=== PATIENT | male | born 1985 | race Caucasian/White ===

== ENCOUNTER 2020-09-10 17:48 | Inpatient (IN) | payer BC ==
[2020-09-10] MEDS ORDERED: SODIUM CHLORIDE 0.9% 1,000 ML IV ONE (19:05)
--- NOTE | 2020-09-10 19:37 | ED ---
General Adult HPI - General Chief complaint: Shortness of Breath Stated complaint: covid+/low o2/sob Time Seen by Provider: 09/10/20 18:50 Source: patient Mode of arrival: ambulatory Limitations: no limitations - History of Present Illness Initial comments: 34 year-old male patient presents to the emergency department for evaluation of increased shortness of breath and low oxygen saturation after being diagnosed with COVID. States he started having symptoms on 09/03/20, tested positive at urgent care on 09/05/20. They prescribed him antibiotics, steroids, and an inhaler. States that meds are not really helping. States that his O2 saturation was 86% at home. States he has an intermittent dry cough. No sputum production, no wheezing. Denies vomiting or diarrhea. Denies any significant medical history. Does not take daily medication. Patient denies any recent rash, chest pain, abdominal pain, back pain, numbness, tingling, dizziness, weakness, grazyna turia, dysuria, urinary urgency, urinary frequency, headache, visual changes, or any other complaints. - Related Data Home Medications Medication Instructions Recorded Confirmed Albuterol Inhaler [Ventolin Hfa 1 - 2 puff INHALATION RT-Q6H PRN 09/10/20 09/10/20 Inhaler] Aspirin EC [Ecotrin Low Dose] 81 mg PO DAILY 09/10/20 09/10/20 Azithromycin [Zithromax] See Taper PO DAILY 09/10/20 09/10/20 Dexamethasone [Decadron] 6 mg PO DAILY 09/10/20 09/10/20 Allergies Allergy/AdvReac Type Severity Reaction Status Date / Time No Known Allergies Allergy Verified 09/10/20 20:34 Review of Systems ROS Statement: Those systems with pertinent positive or pertinent negative responses have been documented in the HPI. ROS Other: All systems not noted in ROS Statement are negative. Past Medical History Past Medical History: No Reported History History of Any Multi-Drug Resistant Organisms: None Reported Past Surgical History: No Surgical Hx Reported Past Psychological History: No Psychological Hx Reported Smoking Status: Former smoker Past Alcohol Use History: Occasional Past Drug Use History: None Reported General Exam Limitations: no limitations General appearance: alert, in no apparent distress Eye exam: Present: normal appearance, PERRL, EOMI. Absent: scleral icterus, conjunctival injection, periorbital swelling ENT exam: Present: normal exam, normal oropharynx, mucous membranes moist Respiratory exam: Present: normal lung sounds bilaterally. Absent: respiratory distress, wheezes, rales, rhonchi, stridor Cardiovascular Exam: Present: regular rate, normal rhythm, normal heart sounds. Absent: systolic murmur, diastolic murmur, rubs, gallop, clicks GI/Abdominal exam: Present: soft, normal bowel sounds. Absent: distended, tenderness, guarding, rebound, rigid Neurological exam: Present: alert, oriented X3, CN II-XII intact Psychiatric exam: Present: normal affect, normal mood Skin exam: Present: warm, dry, intact, normal color. Absent: rash Course Vital Signs 09/10/20 09/10/20 18:02 21:26 Temperature 99.2 F Pulse Rate 88 Respiratory 20 Rate Blood Pressure 134/78 O2 Sat by Pulse 93 L 86 L Oximetry EKG Findings - EKG Comments: EKG Findings:: EKG obtained at 1902 shows normal sinus rhythm with a ventricular rate of 85, MO interval 146, QRS duration 88, QT 372, QTc 442. No evidence of ST elevation or depression. Medical Decision Making - Medical Decision Making 34-year-old male patient presents to the emergency department today for evaluation of increased shortness of breath and low oxygen saturation. Diagnosed with Covid on 09/05/2020, started having symptoms on 09/03/2020. Was given prescriptions for dexamethasone, azithromycin, and Pro Air. Physical examination reveals clear equal lung sounds. He had appeared to be in any significant respiratory distress. Labs reviewed and did reveal lymphocytes, d- dimer 0.49. Glucose 170. LDH is 967, CRP is 7.2. Ambulatory pulse ox is 86% on room air. Resting pulse ox on room air is 89%. He'll be admitted to the hospital for oxygen therapy. We'll add vitamins, IV dexamethasone, and Lovenox. Did consult pulmonology. Case was discussed with Raymond Diaz from [facility]. Case discussed with my attending Dr. Pruitt. - Lab Data Result diagrams: 09/10/20 19:36 09/10/20 19:36 Lab Results 09/10/20 09/10/20 09/10/20 Range/Units 19:36 19:36 19:36 WBC 3.5 L (3.8-10.6) k/uL RBC 4.98 (4.30-5.90) m/uL Hgb 14.0 (13.0-17.5) gm/dL Hct 43.9 (39.0-53.0) % MCV 88.2 (80.0-100.0) fL MCH 28.1 (25.0-35.0) pg MCHC 31.9 (31.0-37.0) g/dL RDW 14.0 (11.5-15.5) % Plt Count 143 L (150-450) k/uL MPV 8.9 Neutrophils % 79 % Lymphocytes % 15 % Monocytes % 4 % Eosinophils % 0 % Basophils % 0 % Neutrophils # 2.7 (1.3-7.7) k/uL Lymphocytes # 0.5 L (1.0-4.8) k/uL Monocytes # 0.1 (0-1.0) k/uL Eosinophils # 0.0 (0-0.7) k/uL Basophils # 0.0 (0-0.2) k/uL PT 10.4 (9.0-12.0) sec INR 1.0 (<1.2) APTT 28.1 (22.0-30.0) sec D-Dimer 0.49 (<0.60) mg/L FEU Sodium 136 L (137-145) mmol/L Potassium 5.0 (3.5-5.1) mmol/L Chloride 98 (98-107) mmol/L Carbon Dioxide 29 (22-30) mmol/L Anion Gap 9 mmol/L BUN 20 (9-20) mg/dL Creatinine 0.84 (0.66-1.25) mg/dL Est GFR (CKD-EPI)AfAm >90 (>60 ml/min/1.73 sqM) Est GFR (CKD-EPI)NonAf >90 (>60 ml/min/1.73 sqM) Glucose 170 H (74-99) mg/dL Plasma Lactic Acid Kareem (0.7-2.0) mmol/L Calcium 8.7 (8.4-10.2) mg/dL Magnesium 2.4 H (1.6-2.3) mg/dL Total Bilirubin 0.6 (0.2-1.3) mg/dL AST 56 (17-59) U/L ALT 38 (4-49) U/L Alkaline Phosphatase 40 (38-126) U/L Lactate Dehydrogenase 967 H (313-618) U/L C-Reactive Protein 7.2 H (<1.0) mg/dL Total Protein 6.7 (6.3-8.2) g/dL Albumin 4.2 (3.5-5.0) g/dL 09/10/20 Range/Units 19:36 WBC (3.8-10.6) k/uL RBC (4.30-5.90) m/uL Hgb (13.0-17.5) gm/dL Hct (39.0-53.0) % MCV (80.0-100.0) fL MCH (25.0-35.0) pg MCHC (31.0-37.0) g/dL RDW (11.5-15.5) % Plt Count (150-450) k/uL MPV Neutrophils % % Lymphocytes % % Monocytes % % Eosinophils % % Basophils % % Neutrophils # (1.3-7.7) k/uL Lymphocytes # (1.0-4.8) k/uL Monocytes # (0-1.0) k/uL Eosinophils # (0-0.7) k/uL Basophils # (0-0.2) k/uL PT (9.0-12.0) sec INR (<1.2) APTT (22.0-30.0) sec D-Dimer (<0.60) mg/L FEU Sodium (137-145) mmol/L Potassium (3.5-5.1) mmol/L Chloride (98-107) mmol/L Carbon Dioxide (22-30) mmol/L Anion Gap mmol/L BUN (9-20) mg/dL Creatinine (0.66-1.25) mg/dL Est GFR (CKD-EPI)AfAm (>60 ml/min/1.73 sqM) Est GFR (CKD-EPI)NonAf (>60 ml/min/1.73 sqM) Glucose (74-99) mg/dL Plasma Lactic Acid Kareem 1.0 (0.7-2.0) mmol/L Calcium (8.4-10.2) mg/dL Magnesium (1.6-2.3) mg/dL Total Bilirubin (0.2-1.3) mg/dL AST (17-59) U/L ALT (4-49) U/L Alkaline Phosphatase (38-126) U/L Lactate Dehydrogenase (313-618) U/L C-Reactive Protein (<1.0) mg/dL Total Protein (6.3-8.2) g/dL Albumin (3.5-5.0) g/dL - Radiology Data Radiology results: report reviewed, image reviewed Two-view x-ray of the chest is obtained. Report was reviewed in its entirety. Impression by Dr. Caldwell shows patchy pneumonia left side. Normal heart. Disposition Clinical Impression: COVID-19, Hypoxia Disposition: ADMITTED IP TO THIS [facility] Condition: Serious Referrals: Khadar Lynne DO [Primary Care Provider] - 1-2 days Decision to Admit Reason: Admit from EC Decision Date: 09/10/20 Decision Time: 22:06
--- NOTE | 2020-09-10 19:47 | XR ---
EXAMINATION TYPE: XR chest 1V portable DATE OF EXAM: 09/10/2020 COMPARISON: NONE HISTORY: Hypoxemia TECHNIQUE: Single view FINDINGS: There is some patchy airspace infiltrate in the left lung. The right lung is clear. Heart a nd mediastinum are normal. There are no hilar masses. There is no pleural effusion. IMPRESSION: There is some patchy pneumonia on the left side. Normal heart.
[2020-09-10] MEDS ORDERED: DEXAMETHASONE SOD PHOSPHATE 10 MG/ML 1 ML VIAL IV STA (19:58)
[2020-09-10 20:11] LABS: Basophils % (A) 0 %; Eosinophils % (A) 0 %; HCT 43.9 % (39.0-53.0); Lymphocytes # (A) 0.5 k/uL (1.0-4.8); Lymphocytes % (A) 15 %; MCH 28.1 pg (25.0-35.0); MCHC 31.9 g/dL (31.0-37.0); MCV 88.2 fL (80.0-100.0); Mean Platelet Volume 8.9; Monocytes # (A) 0.1 k/uL (0-1.0); Monocytes % (A) 4 %; Neutrophils # (A) 2.7 k/uL (1.3-7.7); Neutrophils % (A) 79 %; Platelet Count 143 k/uL (150-450); RBC 4.98 m/uL (4.30-5.90); WBC 3.5 k/uL (3.8-10.6)
[2020-09-10 20:29] LABS: ALT 38 U/L (4-49); AST 56 U/L (17-59); African American GFR (CKD) >90 (>60 ml/min/1.73 sqM); Albumin 4.2 g/dL (3.5-5.0); Alkaline Phosphatase 40 U/L (38-126); Anion Gap 9 mmol/L; Blood Urea Nitrogen 20 mg/dL (9-20); C Reactive Protein 7.2 mg/dL (<1.0); Calcium 8.7 mg/dL (8.4-10.2); Carbon Dioxide 29 mmol/L (22-30); Chloride 98 mmol/L (98-107); D-Dimer 0.49 mg/L FEU (<0.60); Glucose 170 mg/dL (74-99); LDH 967 U/L (313-618); Magnesium 2.4 mg/dL (1.6-2.3); Non-African American GFR(CKD) >90 (>60 ml/min/1.73 sqM); Partial Thromboplastin Time 28.1 sec (22.0-30.0); Prothrombin Time 10.4 sec (9.0-12.0); Sodium 136 mmol/L (137-145); Total Bilirubin 0.6 mg/dL (0.2-1.3); Total Protein 6.7 g/dL (6.3-8.2)
[2020-09-10] MEDS ORDERED: NALOXONE 0.4 MG/ML 1 ML VIAL IV PRN (21:32)
[2020-09-10] MEDS ORDERED: ACETAMINOPHEN TAB 325 MG TAB PO PRN (21:32)
[2020-09-10] MEDS ORDERED: ENOXAPARIN 40 MG/0.4 ML SYRINGE SQ STA (22:00)
[2020-09-10] MEDS ORDERED: REMDESIVIR 200 MG in SODIUM CHLORIDE 0.9% 250 ML IVPB ONE (23:00)
[2020-09-11] MEDS: ASCORBIC ACID 500 MG TAB PO SCH (08:55)
[2020-09-11] MEDS: DEXAMETHASONE SOD PHOSPHATE 10 MG/ML 1 ML VIAL IV SCH (08:55)
[2020-09-11] MEDS: ENOXAPARIN 40 MG/0.4 ML SYRINGE SQ SCH (08:55)
[2020-09-11] MEDS: ZINC SULFATE 220 MG CAP PO SCH (08:55)
[2020-09-11] MEDS: CHOLECALCIFEROL 25 MCG (1000 IU) TABLET PO SCH (08:55)
[2020-09-11 12:52] LABS: Ferritin 661.3 ng/mL (22.0-322.0)
--- NOTE | 2020-09-11 12:57 | P.CNPUL ---
History of Present Illness Consult date: 09/11/20 Requesting physician: Kashif Sanchez Reason for consult: dyspnea, abnormal CXR/CT Chief complaint: Shortness of breath, cough, congestion History of present illness: This is a pleasant 34-year-old male patient who follows with Dr. Lynne as his primary care provider. Significant medical history. Former smoker. On 09/03/2020 he developed symptoms of increased shortness of breath, cough, con gestion, fever with aches. He was diagnosed with COVID-19 on 09/05/2020 at [facility]. He was initiated on antibiotics, steroids, albuterol. No significant improvement. His O2 saturations were 86% at home and presented here to the emergency room yesterday. Chest x-ray revealed bilateral patchy infiltrates more so on the left lung. Initial O2 saturation 86% on room air. 94% on 2 L now. T-max of 102.3. Currently afebrile. White count 3.5. Hemoglobin 14.0. Lymphocytes 0.5. D-dimer 0.49. Sodium 136. Potassium 5.0. Creatinine 0.84. LDH 967. C-reactive protein 7.2. Pro-calcitonin 0.08. He is seen today in consultation in the emergency room. He is currently sitting up on the s tretcher. Awake and alert in no acute distress. Breathing a bit easier today compared to yesterday. He was initiated on Remdesivir last evening. This is day #2. He is on Lovenox, dexamethasone 6 mg daily, vitamin supplements. Review of Systems REVIEW OF SYSTEMS: CONSTITUTIONAL: Generalized weakness, fevers. Denies any recent significant weight loss or weight gain. EYES: Denies change in vision. EARS, NOSE, MOUTH, THROAT: Denies headaches, denies sore throat. CARDIOVASCULAR: Denies chest pain, palpitations or syncopal episodes. RESPIRATORY: Positive for shortness of breath, cough, congestion no hemoptysis. GASTROINTESTINAL: Denies change in appetite, denies abdominal pain GENITOURINARY: Denies hematuria, denies infections. MUSKULOSKELETAL: Denies pain, denies swelling. INTEGUMENTARY: Denies rash, denies eczema. NEUROLOGICAL: Denies recent memory loss, no recent seizure activity. PSYCHIATRIC: Denies anxiety, denies depression. HEMATOLOGIC/LYMPHATIC: Denies anemia, denies enlarged lymph nodes. Past Medical History Past Medical History: No Reported History History of Any Multi-Drug Resistant Organisms: None Reported Past Surgical History: No Surgical Hx Reported Past Psychological History: No Psychological Hx Reported Smoking Status: Former smoker Past Alcohol Use History: Occasional Past Drug Use History: None Reported Medications and Allergies Home Medications Medication Instructions Recorded Confirmed Type Albuterol Inhaler [Ventolin Hfa 1 - 2 puff INHALATION RT-Q6H PRN 09/10/20 09/10/20 History Inhaler] Aspirin EC [Ecotrin Low Dose] 81 mg PO DAILY 09/10/20 09/10/20 History Azithromycin [Zithromax] See Taper PO DAILY 09/10/20 09/10/20 History Dexamethasone [Decadron] 6 mg PO DAILY 09/10/20 09/10/20 History Allergies Allergy/AdvReac Type Severity Reaction Status Date / Time No Known Allergies Allergy Verified 09/10/20 20:34 Physical Exam Vitals: Vital Signs Temp Pulse Resp BP Pulse Ox 09/11/20 07:46 78 16 133/79 94 L 09/11/20 05:00 97.0 F L 69 22 139/84 95 09/11/20 01:02 98.0 F 77 16 95 09/10/20 22:37 102.3 F H 90 18 131/78 93 L 09/10/20 21:26 86 L 09/10/20 18:02 99.2 F 88 20 134/78 93 L Intake and Output 09/10/20 09/11/20 09/11/20 22:59 06:59 14:59 Other: Weight 95.254 kg GENERAL EXAM: Alert, very pleasant 34-year-old gentleman, on 2 L nasal cannula, fairly comfortable in no apparent distress. HEAD: Normocephalic. EYES: Normal reaction of pupils, equal size. NOSE: Clear with pink turbinates. THROAT: No erythema or exudates. NECK: No masses, no JVD. CHEST: No chest wall deformity. LUNGS: Equal air entry with eczema bilateral bases left greater than right. CVS: S1 and S2 normal with no audible murmur, regular rhythm. ABDOMEN: No hepatosplenomegaly, normal bowel sounds, no guarding or rigidity. SPINE: No scoliosis or deformity SKIN: No rashes CENTRAL NERVOUS SYSTEM: No focal deficits, tone is normal in all 4 extremities. EXTREMITIES: There is no peripheral edema. No clubbing, no cyanosis. Peripheral pulses are intact. Results - Laboratory Findings CBC and BMP: 09/10/20 19:36 09/10/20 19:36 PT/INR, D-dimer PT 10.4 sec (9.0-12.0) 09/10/20 19:36 INR 1.0 (<1.2) 09/10/20 19:36 D-Dimer 0.49 mg/L FEU (<0.60) 09/10/20 19:36 Abnormal lab findings: Abnormal Labs 09/10/20 05 19:36 19:36 WBC 3.5 L Plt Count 143 L Lymphocytes # 0.5 L Sodium 136 L Glucose 170 H Magnesium 2.4 H Lactate Dehydrogenase 967 H C-Reactive Protein 7.2 H - Diagnostic Findings Chest x-ray: image reviewed Assessment and Plan Assessment: 1 Acute hypoxemic respiratory failure secondary to acute COVID-19 pneumonia. Initiated on Remdesivir 09/10/2020 2 Febrile illness secondary to above 3 Elevated inflammatory markers secondary to above 4. Former smoker Plan: The patient was seen and evaluated by Dr. Robles Chest x-ray and labs reviewed Initiated on Remdesivir, day #2 Continue Lovenox, Decadron, vitamin supplements Titrate the FiO2 as tolerated We will continue to follow and make further recommendations based on his clinical status I, the cosigning physician, performed a history & physical examination of the patient. Lungs sounds crackles in the posterior bases left greater than right. Maintaining good O2 saturations in the 90s on 2 L/m per nasal cannula. I discussed the assessment and plan of care with my nurse practitioner, Radha Dunn. I attest to the above consultation as dictated by her. Time with Patient: Greater than 30
[2020-09-11] MEDS: REMDESIVIR 100 MG in SODIUM CHLORIDE 0.9% 250 ML IVPB SCH (22:30)
--- NOTE | 2020-09-11 23:30 | P.HPIM ---
History of Present Illness H&P Date: 09/11/20 Chief Complaint: SOB Patient is a 34-year-old male without significant past medical history except prior history of smoking presents to ER due to worsening shortness of breath. Patient also having fever body aches and cough and congestion. Started having symptoms on 09/03/2020 and was tested positive at urgent care facility on 09/05/2020. Patient was started albuterol inhaler, dexamethasone and azithromycin. Patient has been on taking the medication but his symptoms are progressing. Patient states his pulse ox at home found to be 86%. Denies any nausea vomiting or diarrhea. No abdominal pain. No dizziness or lightheadedness. Present presents to ER due to worsening symptoms. Chest x-ray showed there is some parenchymal pneumonia on the left side. Normal heart. EKG showed normal sinus rhythm Laboratory data showed WBC 3.5 hemoglobin 14.0 platelets 143 lymphocytes 0.5 D-dimer is 0.49 Sodium 136, potassium 5.0 BUN 20 and creatinine 0.84, magnesium 2.4 ferritin 661.3 LDH 967 CRP 7.2 and procalcitonin level is 0.08. T-max 102.3 Review of Systems Constitutional: Patient does have fever, chills, generalized weakness and malaise., Body aches.. Abdomen: Patient denied nausea vomiting and diarrhea and abdominal pain. Cardiovascular: Patient denies any chest pain or short of breath no palpitations. Respiratory:Patient does have cough without sputum production. Positive shortness of breath. Neurologic: Patient denied any numbness or tingling headache. Musculoskeletal: Patient denies any complaints of joint swelling or deformity. Skin: Negative Psychiatric: Negative Endocrine: No heat or cold intolerance. No recent weight gain. Genitourinary: No dysuria or hematuria. All other 14 point ROS negative except the above Past Medical History Past Medical History: No Reported History History of Any Multi-Drug Resistant Organisms: None Reported Past Surgical History: No Surgical Hx Reported Past Psychological History: No Psychological Hx Reported Smoking Status: Former smoker Past Alcohol Use History: Occasional Past Drug Use History: None Reported - Past Family History Father Family Medical History: Cancer, Hypertension Additional Family Medical History / Comment(s): leukemia Medications and Allergies Home Medications Medication Instructions Recorded Confirmed Type Albuterol Inhaler [Ventolin Hfa 1 - 2 puff INHALATION RT-Q6H PRN 09/10/20 09/10/20 History Inhaler] Azithromycin [Zithromax] See Taper PO DAILY 09/10/20 09/10/20 History Dexamethasone [Decadron] 6 mg PO DAILY 09/10/20 09/10/20 History Allergies Allergy/AdvReac Type Severity Reaction Status Date / Time No Known Allergies Allergy Verified 09/10/20 20:34 Physical Exam Vitals: Vital Signs Temp Pulse Resp BP Pulse Ox 09/11/20 07:46 78 16 133/79 94 L 09/11/20 05:00 97.0 F L 69 22 139/84 95 09/11/20 01:02 98.0 F 77 16 95 09/10/20 22:37 102.3 F H 90 18 131/78 93 L 09/10/20 21:26 86 L 09/10/20 18:02 99.2 F 88 20 134/78 93 L Intake and Output 09/10/20 09/11/20 09/11/20 22:59 06:59 14:59 Other: Weight 95.254 kg PHYSICAL EXAMINATION: Patient is lying in the bed comfortably, no acute distress, awake alert and oriented.. HEENT: Normocephalic. Neck is supple. Pupils reactive. Nostrils clear. Oral cavity is moist. Ears reveal no drainage. Neck reveals no JVD, carotid bruits, or thyromegaly. CHEST EXAMINATION: Trachea is central. Symmetrical expansion. Lung carroll clear to auscultation and percussion. CARDIAC: Normal S1, S2 with no gallops. No murmurs ABDOMEN: Soft. Bowel sounds normal. No organomegaly. No abdominal bruits. Extremities: reveal no edema. No clubbing or cyanosis Neurologically awake, alert, oriented x3 with well-coordinated movements. No focal deficits noted Skin: No rash or skin lesions. Psychiatric: Coperative. Nonsuicidal Musculoskeletal: No joint swelling or deformity. Normal range of motion. Results CBC & Chem 7: 09/10/20 19:36 09/10/20 19:36 Labs: Abnormal Lab Results - Last 24 Hours (Table) 09/10/20 09/10/20 Range/Units 19:36 19:36 WBC 3.5 L (3.8-10.6) k/uL Plt Count 143 L (150-450) k/uL Lymphocytes # 0.5 L (1.0-4.8) k/uL Sodium 136 L (137-145) mmol/L Glucose 170 H (74-99) mg/dL Magnesium 2.4 H (1.6-2.3) mg/dL Lactate Dehydrogenase 967 H (313-618) U/L C-Reactive Protein 7.2 H (<1.0) mg/dL Thrombosis Risk Factor Assmnt - DVT/VTE Prophylaxis DVT/VTE Prophylaxis: Pharmacologic Prophylaxis ordered Assessment and Plan Assessment: Acute COVID-19 pneumonia. Acute hypoxic respiratory failure secondary to above Generalized body aches, fever cough and congestion Elevated inflammatory markers secondary to COVID-19 Previous history of smoking DVT prophylaxis with Lovenox subcu Plan: Patient will be continued on dexamethasone and Lovenox subcu 40 mg daily along with multivitamins and oxygen supplementation. Patient is currently on oxygen at 2 L via nasal cannula and is saturating at 93%. Pulmonary was consulted for possible remdesivir therapy. Continue to follow closely. Continue with droplet and contact precautions. Time with Patient: Greater than 30
--- NOTE | 2020-09-12 06:47 | XR ---
EXAMINATION TYPE: XR chest 1V portable DATE OF EXAM: 09/12/2020 COMPARISON: 09/10/2020 HISTORY: Pneumonia TECHNIQUE: Single frontal view of the chest is obtained. FINDINGS: Patchy opacity seen along the left heart border could represent pneumonia. There is less v isible today and may represent slight improvement. Remainder of the lungs are clear. Is no pleural ef fusion or pneumothorax. Heart and mediastinum are midline and within normal limits. IMPRESSION: Slight improvement.
[2020-09-12] MEDS: ZINC SULFATE 220 MG CAP PO SCH (08:11)
[2020-09-12] MEDS: CHOLECALCIFEROL 25 MCG (1000 IU) TABLET PO SCH (08:11)
[2020-09-12] MEDS: DEXAMETHASONE SOD PHOSPHATE 10 MG/ML 1 ML VIAL IV SCH (08:11)
[2020-09-12] MEDS: ENOXAPARIN 40 MG/0.4 ML SYRINGE SQ SCH (08:11)
[2020-09-12] MEDS: ASCORBIC ACID 500 MG TAB PO SCH (08:11)
--- NOTE | 2020-09-12 12:39 | P.PN ---
Subjective Progress Note Date: 09/12/20 Principal diagnosis: COVID-19 pneumonia This is a pleasant 34-year-old male patient who follows with Dr. Lynne as his primary care provider. Significant medical history. Former smoker. On 09/03/2020 he developed symptoms of increased shortness of breath, cough, congestion, fever with aches. He was diagnosed with COVID-19 on 09/05/2020 at [facility]. He was initiated on antibiotics, steroids, albuterol. No significant improvement. His O2 saturations were 86% at home and presented here to the emergency room yesterday. Chest x-ray revealed bilateral patchy infilt rates more so on the left lung. Initial O2 saturation 86% on room air. 94% on 2 L now. T-max of 102.3. Currently afebrile. White count 3.5. Hemoglobin 14.0. Lymphocytes 0.5. D-dimer 0.49. Sodium 136. Potassium 5.0. Creatinine 0.84. LDH 967. C-reactive protein 7.2. Pro-calcitonin 0.08. He is seen today in consultation in the emergency room. He is currently sitting up on the stretcher. Awake and alert in no acute distress. Breathing a bit easier today compared to yesterday. He was initiated on Remdesivir last evening. This is day #2. He is on Lovenox, dexamethasone 6 mg daily, vitamin supplements. The patient is seen today 09/12/2020 in follow-up on the regular medical floor. He is currently sitting up in bed. Awake and alert in no acute distress. No worsening shortness of breath, cough or congestion. He is maintaining O2 saturation in the low 90s on 2 L/m per nasal cannula. Temperature 99.8. Blood pressure stable. Chest x-ray continues to show bilateral patchy infiltrates with slight improvement compared to previous. D-dimer 0.31. Day #3 of Remdesivir. Remains on dexamethasone, Lovenox, vitamin supplements. Objective - Vital Signs Vital signs: Vital Signs Temp 99.8 F H 09/12/20 10:19 Pulse 85 09/12/20 10:19 Resp 17 09/12/20 10:19 BP 137/72 09/12/20 10:19 Pulse Ox 90 L 09/12/20 10:19 Intake & Output 09/11/20 09/12/20 09/12/20 18:59 06:59 18:59 Intake Total 250 Balance 250 Weight 95.254 kg Intake: Intake, IV Titration 250 Amount Remdesivir 200 mg In 250 Sodium Chloride 0.9% 250 ml @ 250 mls/hr IVPB ONCE ONE Rx#:[id number] Other: Voiding Method Toilet # Voids 3 - Exam GENERAL EXAM: Alert, very pleasant 34-year-old gentleman, on 2 L nasal cannula, fairly comfortable in no apparent distress. HEAD: Normocephalic. EYES: Normal reaction of pupils, equal size. NOSE: Clear with pink turbinates. THROAT: No erythema or exudates. NECK: No masses, no JVD. CHEST: No chest wall deformity. LUNGS: Equal air entry with crackles in the bilateral bases left greater than right. CVS: S1 and S2 normal with no audible murmur, regular rhythm. ABDOMEN: No hepatosplenomegaly, normal bowel sounds, no guarding or rigidity. SPINE: No scoliosis or deformity SKIN: No rashes CENTRAL NERVOUS SYSTEM: No focal deficits, tone is normal in all 4 extremities. EXTREMITIES: There is no peripheral edema. No clubbing, no cyanosis. Peripheral pulses are intact. - Labs CBC & Chem 7: 09/10/20 19:36 09/10/20 19:36 Labs: Abnormal Lab Results - Last 24 Hours (Table) 09/10/20 Range/Units 19:36 Ferritin 661.3 H (22.0-322.0) ng/mL Assessment and Plan Assessment: 1 Acute hypoxemic respiratory failure secondary to acute COVID-19 pneumonia. Initiated on Remdesivir 09/10/2020 2 Febrile illness secondary to above 3 Elevated inflammatory markers secondary to above 4 Former smoker Plan: The patient was seen and evaluated by Dr. Robles Chest x-ray and labs reviewed Remdesivir, day #3 Continue Lovenox, Decadron, vitamin supplements Titrate the FiO2 as tolerated Follow-up labs in a.m. We will continue to follow I, the cosigning physician, performed a history & physical examination of the patient. Lungs sounds crackles in the posterior bases left greater than right. Maintaining good O2 saturations in the 90s on 2 L/m per nasal cannula. I discussed the assessment and plan of care with my nurse practitioner, Radha Dunn. I attest to the above note as dictated by her.
[2020-09-12 15:22] LABS: C Reactive Protein 2.4 mg/dL (0.0-0.8)
[2020-09-12] MEDS: MELATONIN 3 MG TABLET PO SCH (21:19)
[2020-09-12] MEDS: REMDESIVIR 100 MG in SODIUM CHLORIDE 0.9% 250 ML IVPB SCH (22:56)
--- NOTE | 2020-09-13 00:22 | P.PN ---
Subjective Progress Note Date: 09/12/20 Principal diagnosis: Acute COVID-19 pneumonia. Acute hypoxic respiratory failure secondary to above Patient is a 34-year-old male without significant past medical history except p rior history of smoking presents to ER due to worsening shortness of breath. Patient also having fever body aches and cough and congestion. Started having symptoms on 09/03/2020 and was tested positive at urgent care facility on 09/05/2020. Patient was started albuterol inhaler, dexamethasone and ben thromycin. Patient has been on taking the medication but his symptoms are progressing. Patient states his pulse ox at home found to be 86%. Denies any nausea vomiting or diarrhea. No abdominal pain. No dizziness or lightheadedness. Present presents to ER due to worsening symptoms. Chest x-ray showed there is some parenchymal pneumonia on the left side. Normal heart. EKG showed normal sinus rhythm Laboratory data showed WBC 3.5 hemoglobin 14.0 platelets 143 lymphocytes 0.5 D-dimer is 0.49 Sodium 136, potassium 5.0 BUN 20 and creatinine 0.84, magnesium 2.4 ferritin 661.3 LDH 967 CRP 7.2 and procalcitonin level is 0.08. T-max 102.3 09/12/2020 Patient is currently lying in the bed comfortably. Patient states that he feels better today. Denies any complaints of chest pain. Currently on oxygen at 2 L via nasal cannula and saturating at 90%. T-max 99.8 this morning. Chest x-ray showed slight improvement. Otherwise patient is being continued on remdesivir day 3 and dexamethasone and Lovenox. Pulmonary is on board. Current medications reviewed. Objective - Vital Signs Vital signs: Vital Signs Temp 99.8 F H 09/12/20 10:19 Pulse 85 09/12/20 10:19 Resp 17 09/12/20 10:19 BP 137/72 09/12/20 10:19 Pulse Ox 90 L 09/12/20 10:19 Intake & Output 09/11/20 09/12/20 09/12/20 18:59 06:59 18:59 Intake Total 250 Balance 250 Weight 95.254 kg Intake: Intake, IV Titration 250 Amount Remdesivir 200 mg In 250 Sodium Chloride 0.9% 250 ml @ 250 mls/hr IVPB ONCE ONE Rx#:[id number] Other: Voiding Method Toilet # Voids 3 - Exam PHYSICAL EXAMINATION: Patient is lying in the bed comfortably, no acute distress, awake alert and oriented.. HEENT: Normocephalic. Neck is supple. Pupils reactive. Nostrils clear. Oral cavity is moist. Ears reveal no drainage. Neck reveals no JVD, carotid bruits, or thyromegaly. CHEST EXAMINATION: Trachea is central. Symmetrical expansion. Lung carroll clear to auscultation and percussion. CARDIAC: Normal S1, S2 with no gallops. No murmurs ABDOMEN: Soft. Bowel sounds normal. No organomegaly. No abdominal bruits. Extremities: reveal no edema. No clubbing or cyanosis Neurologically awake, alert, oriented x3 with well-coordinated movements. No fo angela deficits noted Skin: No rash or skin lesions. Psychiatric: Coperative. Nonsuicidal Musculoskeletal: No joint swelling or deformity. Normal range of motion. - Labs CBC & Chem 7: 09/10/20 19:36 09/10/20 19:36 Assessment and Plan Assessment: Acute COVID-19 pneumonia. Acute hypoxic respiratory failure secondary to above Generalized body aches, fever cough and congestion Elevated inflammatory markers secondary to COVID-19 Previous history of smoking DVT prophylaxis with Lovenox subcu Plan: Patient will be continued on dexamethasone and Lovenox subcu 40 mg daily along with multivitamins and oxygen supplementation. Patient is currently on oxygen at 2 L via nasal cannula and is saturating at 93%. pulmonary is following. remdesivir therapy day 3. Continue to follow closely. Continue with droplet and contact precautions. Time with Patient: Greater than 30
[2020-09-13] MEDS: ASCORBIC ACID 500 MG TAB PO SCH (08:38)
[2020-09-13] MEDS: DEXAMETHASONE SOD PHOSPHATE 10 MG/ML 1 ML VIAL IV SCH (08:38)
[2020-09-13] MEDS: CHOLECALCIFEROL 25 MCG (1000 IU) TABLET PO SCH (08:38)
[2020-09-13] MEDS: ZINC SULFATE 220 MG CAP PO SCH (08:38)
[2020-09-13] MEDS: ENOXAPARIN 40 MG/0.4 ML SYRINGE SQ SCH (08:39)
[2020-09-13 11:46] LABS: Basophils # (A) 0.01 X 10*3/uL (0.00-0.10); Basophils % (A) 0.1 %; Eosinophils # (A) 0 X 10*3/uL (0.04-0.35); Eosinophils % (A) 0 %; HCT 45.1 % (39.6-50.0); HGB 13.9 g/dL (13.0-17.0); Lymphocytes # (A) 1.87 X 10*3/uL (0.90-5.00); Lymphocytes % (A) 24.2 %; MCH 28.5 pg (27.0-32.0); MCHC 30.8 g/dL (32.0-37.0); MCV 92.4 fL (80.0-97.0); Mean Platelet Volume 11.7 fL (9.5-12.2); Monocytes # (A) 1.28 X 10*3/uL (0.20-1.00); Monocytes % (A) 16.6 %; Neutrophils # (A) 4.54 X 10*3/uL (1.80-7.70); Neutrophils % (A) 58.7 %; Platelet Count 197 X 10*3/uL (140-440); RBC 4.88 X 10*6/uL (4.40-5.60); RDW 14.1 % (11.5-14.5); WBC 7.73 X 10*3/uL (4.50-10.00)
[2020-09-13 13:00] LABS: African American GFR (CKD) 111.7 (60.0-200.0); Albumin 4.2 g/dL (3.80-4.90); Albumin/Globulin Ratio 2.1 (1.60-3.17); Anion Gap 5.9 mmol/L (4.00-12.00); C Reactive Protein 2.3 mg/dL (0.0-0.8); Calcium 8.7 mg/dL (8.7-10.3); Carbon Dioxide 29.1 mmol/L (21.6-31.8); Non-African American GFR(CKD) 96.4 (60.0-200.0); Total Bilirubin 0.5 mg/dL (0.3-1.2); Total Protein 6.2 g/dL (6.2-8.2)
--- NOTE | 2020-09-13 13:52 | P.PN ---
Subjective Progress Note Date: 09/13/20 Principal diagnosis: COVID-19 pneumonia This is a pleasant 34-year-old male patient who follows with Dr. Lynne as his primary care provider. Significant medical history. Former smoker. On 09/03/2020 he developed symptoms of increased shortness of breath, cough, congestion, fever with aches. He was diagnosed with COVID-19 on 09/05/2020 at [facility]. He was initiated on antibiotics, steroids, albuterol. No significant improvement. His O2 saturations were 86% at home and presented here to the emergency room yesterday. Chest x-ray revealed bilateral patchy infilt rates more so on the left lung. Initial O2 saturation 86% on room air. 94% on 2 L now. T-max of 102.3. Currently afebrile. White count 3.5. Hemoglobin 14.0. Lymphocytes 0.5. D-dimer 0.49. Sodium 136. Potassium 5.0. Creatinine 0.84. LDH 967. C-reactive protein 7.2. Pro-calcitonin 0.08. He is seen today in consultation in the emergency room. He is currently sitting up on the stretcher. Awake and alert in no acute distress. Breathing a bit easier today compared to yesterday. He was initiated on Remdesivir last evening. This is day #2. He is on Lovenox, dexamethasone 6 mg daily, vitamin supplements. The patient is seen today 09/12/2020 in follow-up on the regular medical floor. He is currently sitting up in bed. Awake and alert in no acute distress. No worsening shortness of breath, cough or congestion. He is maintaining O2 saturation in the low 90s on 2 L/m per nasal cannula. Temperature 99.8. Blood pressure stable. Chest x-ray continues to show bilateral patchy infiltrates with slight improvement compared to previous. D-dimer 0.31. Day #3 of Remdesivir. Remains on dexamethasone, Lovenox, vitamin supplements. The patient is seen today 09/13/2020 in follow-up on the regular medical floor. He is awake and alert in no acute distress. Sitting up at the bedside. Denies any worsening shortness of breath, cough or congestion. Maintaining O2 saturation in the 90s on 2 L/m per nasal cannula. He's been afebrile. Hemodynamically stable. White count 7.7. Hemoglobin 13.9. Lymphocytes 1.87. D-dimer is 0.28. Sodium 1:30. Potassium 5.0. Creatinine 1.0. AST 38. ALT 56. LDH 390. C-reactive protein 2.3. Pro-calcitonin 0.08. He remains on IV D ecadron, Lovenox, vitamin supplements. This is day #4 of his Remdesivir. Objective - Vital Signs Vital signs: Vital Signs Temp 98.3 F 09/13/20 13:46 Pulse 75 09/13/20 13:46 Resp 19 09/13/20 13:46 BP 134/74 09/13/20 13:46 Pulse Ox 94 L 09/13/20 13:46 Intake & Output 09/12/20 09/13/20 09/13/20 18:59 06:59 18:59 Other: Voiding Method Toilet Toilet # Voids 3 - Exam GENERAL EXAM: Alert, very pleasant 34-year-old gentleman, on 2 L nasal cannula, fairly comfortable in no apparent distress. HEAD: Normocephalic. EYES: Normal reaction of pupils, equal size. NOSE: Clear with pink turbinates. THROAT: No erythema or exudates. NECK: No masses, no JVD. CHEST: No chest wall deformity. LUNGS: Equal air entry with crackles in the bilateral bases left greater than right. CVS: S1 and S2 normal with no audible murmur, regular rhythm. ABDOMEN: No hepatosplenomegaly, normal bowel sounds, no guarding or rigidity. SPINE: No scoliosis or deformity SKIN: No rashes CENTRAL NERVOUS SYSTEM: No focal deficits, tone is normal in all 4 extremities. EXTREMITIES: There is no peripheral edema. No clubbing, no cyanosis. Peripheral pulses are intact. - Labs CBC & Chem 7: 09/13/20 07:09 09/13/20 07:09 Labs: Abnormal Lab Results - Last 24 Hours (Table) 09/12/20 09/13/20 09/13/20 Range/Units 06:01 07:09 07:09 MCHC 30.8 L (32.0-37.0) g/dL Monocytes # 1.28 H (0.20-1.00) X 10*3/uL Eosinophils # 0 L (0.04-0.35) X 10*3/uL BUN/Creatinine Ratio 25.00 H (12.00-20.00) Ratio Glucose 157 H (70-110) mg/dL AST 38 H (14-35) U/L ALT 56 H (10-49) U/L Lactate Dehydrogenase 384 H 390 H (120-246) U/L C-Reactive Protein 2.4 H 2.3 H (0.0-0.8) mg/dL Assessment and Plan Assessment: 1 Acute hypoxemic respiratory failure secondary to acute COVID-19 pneumonia. Initiated on Remdesivir 09/10/2020 2 Febrile illness secondary to above 3 Elevated inflammatory markers secondary to above 4 Former smoker Plan: The patient was seen and evaluated by Dr. Margaret Hernandez, day #4 Continue Lovenox, Decadron, vitamin supplements Titrate the FiO2 as tolerated Follow-up this x-ray, labs in a.m. Probable discharge tomorrow We will continue to follow I, the cosigning physician, performed a history & physical examination of the patient. Lungs sounds crackles in the posterior bases left greater than right. Maintaining good O2 saturations in the 90s on 2 L/m per nasal cannula. I discussed the assessment and plan of care with my nurse practitioner, Radha Dunn. I attest to the above note as dictated by her.
--- NOTE | 2020-09-13 17:20 | P.PN ---
Subjective Progress Note Date: 09/13/20 Principal diagnosis: Acute COVID-19 pneumonia. Acute hypoxic respiratory failure secondary to above 34-year-old male without significant past medical history except prior history of smoking presents to ER due to worsening shortness of breath. Patient also having fever body aches and cough and congestion. Started having symptoms on 09/03/2020 and was tested positive at urgent care facility on 09/05/2020. Patient was started albuterol inhaler, dexamethasone and azithromycin. Patient has been on taking the medication but his symptoms are progressing. Patient states his pulse ox at home found to be 86%. Denies any nausea vomiting or diarrhea. No abdominal pain. No dizziness or lightheadedness. Present presents to ER due to worsening symptoms. Chest x-ray showed there is some parenchymal pneumonia on the left side. Normal heart. EKG showed normal sinus rhythm Laboratory data showed WBC 3.5 hemoglobin 14.0 platelets 143 lymphocytes 0.5 D-dimer is 0.49 Sodium 136, potassium 5.0 BUN 20 and creatinine 0.84, magnesium 2.4 ferritin 661.3 LDH 967 CRP 7.2 and procalcitonin level is 0.08. T-max 102.3 09/12/2020 Patient is currently lying in the bed comfortably. Patient states that he feels better today. Denies any complaints of chest pain. Currently on oxygen at 2 L via nasal cannula and saturating at 90%. T-max 99.8 this morning. Chest x-ray showed slight improvement. Otherwise patient is being continued on remdesivir day 3 and dexamethasone and Lovenox. Pulmonary is on board. 09/13/2020 Patient is seen in follow-up on the regular medical floor. He is awake and alert in no acute distress. Sitting up at the bedside. Denies any worsening shortness of breath, cough or congestion. Maintaining O2 saturation in the 90s on 2 L/m per nasal cannula. He's been afebrile. Hemodynamically stable. White count 7.7. Hemoglobin 13.9. Lymphocytes 1.87. D-dimer is 0.28. Sodium 1:30. Potassium 5.0. Creatinine 1.0. AST 38. ALT 56. LDH 390. C-reactive protein 2.3. Pro-calcitonin 0.08. He remains on IV Decadron, Lovenox, vitamin supplements. This is day #4 of his Remdesivir. Continue Lovenox, Decadron, vitamin supplements; Titrate the FiO2 as tolerated; Follow-up this x-ray, labs in a.m. Probable discharge tomorrow Objective - Vital Signs Vital signs: Vital Signs Temp 97.8 F 09/13/20 09:47 Pulse 80 09/13/20 09:47 Resp 19 09/13/20 09:47 BP 125/76 09/13/20 09:47 Pulse Ox 92 L 09/13/20 09:47 Intake & Output 09/12/20 09/13/20 09/13/20 18:59 06:59 18:59 Other: Voiding Method Toilet Toilet # Voids 3 - Exam Patient is lying in the bed comfortably, no acute distress, awake alert and oriented.. HEENT: Normocephalic. Neck is supple. Pupils reactive. Nostrils clear. Oral cavity is moist. Ears reveal no drainage. Neck reveals no JVD, carotid bruits, or thyromegaly. CHEST EXAMINATION: Trachea is central. Symmetrical expansion. Lung carroll clear to auscultation and percussion. CARDIAC: Normal S1, S2 with no gallops. No murmurs ABDOMEN: Soft. Bowel sounds normal. No organomegaly. No abdominal bruits. Extremities: reveal no edema. No clubbing or cyanosis Neurologically awake, alert, oriented x3 with well-coordinated movements. No focal deficits noted Skin: No rash or skin lesions. Psychiatric: Coperative. Nonsuicidal Musculoskeletal: No joint swelling or deformity. Normal range of motion. - Labs CBC & Chem 7: 09/13/20 07:09 09/13/20 07:09 Labs: Abnormal Lab Results - Last 24 Hours (Table) 09/12/20 09/13/20 09/13/20 Range/Units 06:01 07:09 07:09 MCHC 30.8 L (32.0-37.0) g/dL Monocytes # 1.28 H (0.20-1.00) X 10*3/uL Eosinophils # 0 L (0.04-0.35) X 10*3/uL BUN/Creatinine Ratio 25.00 H (12.00-20.00) Ratio Glucose 157 H (70-110) mg/dL AST 38 H (14-35) U/L ALT 56 H (10-49) U/L Lactate Dehydrogenase 384 H 390 H (120-246) U/L C-Reactive Protein 2.4 H 2.3 H (0.0-0.8) mg/dL Assessment and Plan Assessment: Acute COVID-19 pneumonia. Acute hypoxic respiratory failure secondary to above Generalized body aches, fever cough and congestion Elevated inflammatory markers secondary to COVID-19 Previous history of smoking DVT prophylaxis with Lovenox subcu Plan: Patient will be continued on dexamethasone and Lovenox subcu 40 mg daily along with multivitamins and oxygen supplementation. Patient is currently on oxygen at 2 L via nasal cannula and is saturating at 93%. pulmonary is following. remdesivir therapy day 3. Continue to follow closely. Continue with droplet and contact precautions.
[2020-09-13] MEDS: MELATONIN 3 MG TABLET PO SCH (22:06)
[2020-09-13] MEDS: REMDESIVIR 100 MG in SODIUM CHLORIDE 0.9% 250 ML IVPB SCH (22:07)
--- NOTE | 2020-09-14 07:24 | XR ---
EXAMINATION TYPE: XR chest 1V portable DATE OF EXAM: 09/14/2020 COMPARISON: 09/12/2020 HISTORY: Cough TECHNIQUE: Single frontal view of the chest is obtained. FINDINGS: There is improving interstitial infiltrates. Heart is enlarged. No sizable pleural effusio n or pneumothorax. Osseous structures intact. IMPRESSION: Cardiomegaly with improving patchy interstitial infiltrates.
[2020-09-14] MEDS: ENOXAPARIN 40 MG/0.4 ML SYRINGE SQ SCH (08:39)
[2020-09-14] MEDS: ZINC SULFATE 220 MG CAP PO SCH (08:39)
[2020-09-14] MEDS: ASCORBIC ACID 500 MG TAB PO SCH (08:39)
[2020-09-14] MEDS: CHOLECALCIFEROL 25 MCG (1000 IU) TABLET PO SCH (08:39)
[2020-09-14] MEDS: DEXAMETHASONE SOD PHOSPHATE 10 MG/ML 1 ML VIAL IV SCH (08:39)
[2020-09-14 10:45] VITALS: RESP 16
--- NOTE | 2020-09-14 11:10 | P.PN ---
Subjective Progress Note Date: 09/14/20 Principal diagnosis: COVID-19 pneumonia This is a pleasant 34-year-old male patient who follows with Dr. Lynne as his primary care provider. Significant medical history. Former smoker. On 09/03/2020 he developed symptoms of increased shortness of breath, cough, congestion, fever with aches. He was diagnosed with COVID-19 on 09/05/2020 at [facility]. He was initiated on antibiotics, steroids, albuterol. No significant improvement. His O2 saturations were 86% at home and presented here to the emergency room yesterday. Chest x-ray revealed bilateral patchy infilt rates more so on the left lung. Initial O2 saturation 86% on room air. 94% on 2 L now. T-max of 102.3. Currently afebrile. White count 3.5. Hemoglobin 14.0. Lymphocytes 0.5. D-dimer 0.49. Sodium 136. Potassium 5.0. Creatinine 0.84. LDH 967. C-reactive protein 7.2. Pro-calcitonin 0.08. He is seen today in consultation in the emergency room. He is currently sitting up on the stretcher. Awake and alert in no acute distress. Breathing a bit easier today compared to yesterday. He was initiated on Remdesivir last evening. This is day #2. He is on Lovenox, dexamethasone 6 mg daily, vitamin supplements. The patient is seen today 09/12/2020 in follow-up on the regular medical floor. He is currently sitting up in bed. Awake and alert in no acute distress. No worsening shortness of breath, cough or congestion. He is maintaining O2 saturation in the low 90s on 2 L/m per nasal cannula. Temperature 99.8. Blood pressure stable. Chest x-ray continues to show bilateral patchy infiltrates with slight improvement compared to previous. D-dimer 0.31. Day #3 of Remdesivir. Remains on dexamethasone, Lovenox, vitamin supplements. The patient is seen today 09/13/2020 in follow-up on the regular medical floor. He is awake and alert in no acute distress. Sitting up at the bedside. Denies any worsening shortness of breath, cough or congestion. Maintaining O2 saturation in the 90s on 2 L/m per nasal cannula. He's been afebrile. Hemodynamically stable. White count 7.7. Hemoglobin 13.9. Lymphocytes 1.87. D-dimer is 0.28. Sodium 1:30. Potassium 5.0. Creatinine 1.0. AST 38. ALT 56. LDH 390. C-reactive protein 2.3. Pro-calcitonin 0.08. He remains on IV D ecadron, Lovenox, vitamin supplements. This is day #4 of his Remdesivir. The patient is seen today 09/14/2020 in follow-up on the regular medical floor. Currently sitting up in bed. Awake and alert in no acute distress. He is now maintaining O2 saturations in the mid 90s on room air. This is day #5 of Remdesivir. He remains on Decadron, Lovenox, vitamin supplements. D-dimer 0.21. Objective - Vital Signs Vital signs: Vital Signs Temp 98.1 F 09/14/20 10:00 Pulse 68 09/14/20 10:00 Resp 16 09/14/20 10:00 BP 126/77 09/14/20 10:00 Pulse Ox 92 L 09/14/20 10:00 Intake & Output 09/13/20 09/14/20 09/14/20 18:59 06:59 18:59 Other: Voiding Method Toilet Toilet Toilet # Voids 3 1 - Exam GENERAL EXAM: Alert, very pleasant 34-year-old gentleman, on room air, comfortable in no apparent distress. HEAD: Normocephalic. EYES: Normal reaction of pupils, equal size. NOSE: Clear with pink turbinates. THROAT: No erythema or exudates. NECK: No masses, no JVD. CHEST: No chest wall deformity. LUNGS: Equal air entry with crackles in the bilateral bases. CVS: S1 and S2 normal with no audible murmur, regular rhythm. ABDOMEN: No hepatosplenomegaly, normal bowel sounds, no guarding or rigidity. SPINE: No scoliosis or deformity SKIN: No rashes CENTRAL NERVOUS SYSTEM: No focal deficits, tone is normal in all 4 extremities. EXTREMITIES: There is no peripheral edema. No clubbing, no cyanosis. Peripheral pulses are intact. - Labs CBC & Chem 7: 09/13/20 07:09 09/13/20 07:09 Labs: Abnormal Lab Results - Last 24 Hours (Table) 09/13/20 09/13/20 Range/Units 07:09 07:09 MCHC 30.8 L (32.0-37.0) g/dL Monocytes # 1.28 H (0.20-1.00) X 10*3/uL Eosinophils # 0 L (0.04-0.35) X 10*3/uL BUN/Creatinine Ratio 25.00 H (12.00-20.00) Ratio Glucose 157 H (70-110) mg/dL AST 38 H (14-35) U/L ALT 56 H (10-49) U/L Lactate Dehydrogenase 390 H (120-246) U/L C-Reactive Protein 2.3 H (0.0-0.8) mg/dL Assessment and Plan Assessment: 1 Acute hypoxemic respiratory failure secondary to acute COVID-19 pneumonia. Initiated on Remdesivir 09/10/2020. Recovered and on room air 2 Febrile illness secondary to above, recovered 3 Elevated inflammatory markers secondary to above 4 Former smoker Plan: The patient was seen and evaluated by Dr. Margaret Hernandez, day #5 Cleared for discharge from the pulmonary standpoint Complete a 10 day course of Decadron, vitamin supplements Follow-up in our office in 1-2 weeks' I, the cosigning physician, performed a history & physical examination of the patient. Lungs sounds crackles in the posterior bases. Maintaining good O2 saturations in the 90s on room air. I discussed the assessment and plan of care with my nurse practitioner, Radha Dunn. I attest to the above note as dictated by her.
[2020-09-14] MEDS ORDERED: REMDESIVIR 100 MG in SODIUM CHLORIDE 0.9% 250 ML IVPB SCH (17:00)
[2020-09-14 17:59] VITALS: BP 132/79; PULSE 70; TEMP 98.2
--- NOTE | 2020-09-22 13:14 | P.DS ---
Providers Date of admission: 09/10/20 21:21 Expected date of discharge: 09/14/20 Attending physician: Kashif Sanchez Consults: 09/10/20 21:32 Consult Physician Routine Consulting Provider: Elisabeth Robles Consult Reason/Comments: Hypoxia; COVID-19 Do you want consulting provider notified?: Yes Primary care physician: [facility] Course: 34-year-old male without significant past medical history except prior history of smoking presents to ER due to worsening shortness of breath. Patient also having fever body aches and cough and congestion. Started having symptoms on 09/03/2020 and was tested positive at urgent care facility on 09/05/2020. Patient was started albuterol inhaler, dexamethasone and azithromycin. Patient has been on taking the medication but his symptoms are progressing. Patient states his pulse ox at home found to be 86%. Denies any nausea vomiting or diarrhea. No abdominal pain. No dizziness or lightheadedness. Present presents to ER due to worsening symptoms. Chest x-ray showed there is some parenchymal pneumonia on the left side. Normal heart. EKG showed normal sinus rhythm Laboratory data showed WBC 3.5 hemoglobin 14.0 platelets 143 lymphocytes 0.5 D-dimer is 0.49 Sodium 136, potassium 5.0 BUN 20 and creatinine 0.84, magnesium 2.4 ferritin 661.3 LDH 967 CRP 7.2 and procalcitonin level is 0.08. T-max 102 patient completed treatment with remdesivir; pulmonary was on board Remdesivir, day #5 Cleared for discharge from the pulmonary standpoint Complete a 10 day course of Decadron, vitamin supplements Follow-up in our office in 1-2 weeks' Patient Condition at Discharge: Serious Plan - Discharge Summary Discharge Rx Participant: No New Discharge Prescriptions: New Cholecalciferol [Vitamin D3 (25 Mcg = 1000 Iu)] 125 mcg PO DAILY #30 tablet Zinc Sulfate [Orazinc] 220 mg PO DAILY #30 cap Ascorbic Acid [Vitamin C] 1,000 mg PO DAILY #30 tab Continue Dexamethasone [Decadron] 6 mg PO DAILY Albuterol Inhaler [Ventolin Hfa Inhaler] 1 - 2 puff INHALATION RT-Q6H PRN PRN Reason: Shortness Of Breath Azithromycin [Zithromax] See Taper PO DAILY Discharge Medication List Albuterol Inhaler [Ventolin Hfa Inhaler] 1 - 2 puff INHALATION RT-Q6H PRN 09/10/20 [History] Azithromycin [Zithromax] See Taper PO DAILY 09/10/20 [History] Dexamethasone [Decadron] 6 mg PO DAILY 09/10/20 [History] Ascorbic Acid [Vitamin C] 1,000 mg PO DAILY #30 tab 09/14/20 [Rx] Cholecalciferol [Vitamin D3 (25 Mcg = 1000 Iu)] 125 mcg PO DAILY #30 tablet 09/14/20 [Rx] Zinc Sulfate [Orazinc] 220 mg PO DAILY #30 cap 09/14/20 [Rx] Follow up Appointment(s)/Referral(s): Khadar Lynne DO [Primary Care Provider] - 1-2 days Patient Instructions/Handouts: Coronavirus Disease 2019 (COVID-19) Discharge Disposition: HOME SELF-CARE
== END 2020-09-14 19:07 | disposition home or self-care (01) | DRG 177 ==
LOC: EC 17:48 → 4SSUR 21:21
PROVIDERS: ADMIT Hospitalist; ATTEND Hospitalist
PROC: XW033E5 Introduction of Remdesivir Anti-infective into Peripheral Vein, Percutaneous Approach, New Technology Group 5 (ICD-10-PCS; principal; 2020-09-10)
DX: U07.1 COVID-19 (principal); J12.82 Pneumonia due to coronavirus disease 2019; J96.01 Acute respiratory failure with hypoxia; Z87.891 Personal history of nicotine dependence; Z80.6 Family history of leukemia; Z82.49 Family history of ischemic heart disease and other diseases of the circulatory system
CPT/HCPCS: 36415; 71045; 80053; 82728; 83605; 83615; 83735; 84145; 85025; 85379; 85610; 85730; 86140; 93005; 96365; 99285